=== PATIENT | male | born 1955 | race Caucasian/White ===

== ENCOUNTER 2017-07-27 11:56 | Outpatient (CLI) | payer OTHER ==
[2015-07-06 11:44] VITALS: O2SAT 97
== END 2017-07-27 11:57 | disposition home or self-care (01) | DRG 554 ==
LOC: CONVCARE 11:56
PROVIDERS: ATTEND Orthopaedic Surgery
DX: M87.9 Osteonecrosis, unspecified (principal); M16.11 Unilateral primary osteoarthritis, right hip; Z47.1 Aftercare following joint replacement surgery; Z96.652 Presence of left artificial knee joint
CPT/HCPCS: 73501; 73502

== ENCOUNTER 2017-08-10 05:28 | Inpatient (IN) | payer OTHER ==
[2017-08-10] MEDS ORDERED: LACTATED RINGERS 1,000 ML IV ONE (06:00)
[2017-08-10] MEDS: SCOPOLAMINE 1.5MG PATCH TD SCH (06:02)
[2017-08-10] MEDS ORDERED: LACTATED RINGERS 1,000 ML IV SCH (07:00)
[2017-08-10] MEDS ORDERED: PROPOFOL 500 MG/50 ML EMU IV ONE ×2 (07:28→09:25)
[2017-08-10] MEDS ORDERED: METOCLOPRAMIDE HYDROCHLORIDE 5 MG/ML SOL ONE (07:29)
[2017-08-10] MEDS ORDERED: DEXAMETHASONE 20 MG/5 ML (4 MG/ML SOL) ONE (07:29)
[2017-08-10] MEDS ORDERED: CEFAZOLIN SODIUM 1 GM PDS ONE ×3 (07:29→23:50)
[2017-08-10] MEDS ORDERED: BUPIVACAINE LIPOSOME 20 ML SUS ONE (07:30)
[2017-08-10] MEDS ORDERED: TRANEXAMIC ACID 100 MG/ML SOL ONE (07:30)
[2017-08-10] MEDS ORDERED: HYDROMORPHONE 1 MG/ML SYRINGE ONE (07:32)
[2017-08-10] MEDS ORDERED: MIDAZOLAM 2 MG/2 ML SOL ONE ×2 (07:51→08:53)
[2017-08-10] MEDS ORDERED: SODIUM CHLORIDE 20 ML 40 ML ONE (07:55)
[2017-08-10] MEDS ORDERED: EPHEDRINE SULFATE 50 MG/ML SOL ONE (08:53)
[2017-08-10] MEDS ORDERED: PHENYLEPHRINE HYDROCHLORIDE 10 MG/ML SOL ONE (08:53)
[2017-08-10] MEDS ORDERED: ONDANSETRON HCL 4 MG/2 ML SOL ONE (09:45)
[2017-08-10] MEDS ORDERED: FLEET ENEMA PR PRN (09:47)
[2017-08-10] MEDS ORDERED: DIPHENHYDRAMINE 25 MG CAP PO PRN (09:47)
[2017-08-10] MEDS ORDERED: ONDANSETRON 4 MG ODT BU PRN (09:47)
[2017-08-10] MEDS ORDERED: MAGNESIUM HYDROXIDE 30 ML SUS PO PRN (09:47)
[2017-08-10] MEDS ORDERED: ONDANSETRON HCL 4 MG/2 ML SOL IV PRN (09:47)
[2017-08-10] MEDS ORDERED: DIAZEPAM 5 MG TAB PO PRN (09:47)
[2017-08-10] MEDS ORDERED: TEMAZEPAM 15MG 15 MG CAP PO PRN (09:47)
[2017-08-10] MEDS ORDERED: BISACODYL 10 MG SUP PR PRN (09:47)
[2017-08-10] MEDS ORDERED: ALUMINUM/MAGNESIUM 30 ML SUS PO PRN (09:47)
[2017-08-10] MEDS ORDERED: SODIUM CHLORIDE 0.9% 500 ML 500 ML IV PRN (09:47)
[2017-08-10] MEDS: DEXTROSE/SALINE 0.45% 1,000 ML IV SCH (12:21)
[2017-08-10] MEDS: SODIUM CHLORIDE 0.9% FLUSH 10 ML SOL IV SCH ×2 (13:12→17:01)
[2017-08-10] MEDS: ACETAMINOPHEN 500 MG 500 MG TAB PO SCH ×3 (13:16→21:01)
[2017-08-10] MEDS ORDERED: CEFAZOLIN SODIUM 1 GM PDS 1 GM in SODIUM CHLORIDE 0.9% 50 ML 50 ML IV SCH ×2 (15:30→16:15)
[2017-08-10] MEDS ORDERED: CEFAZOLIN (PREMIX) 1 GM 1 GM/50 ML SOL IV SCH ×2 (15:51→16:15)
[2017-08-10] MEDS ORDERED: SODIUM CHLORIDE 0.9% 50 ML 50 ML IV ONE ×2 (16:53→23:50)
[2017-08-10] MEDS: CEFAZOLIN SODIUM 1 GM PDS 1 GM in SODIUM CHLORIDE 0.9% 50 ML 50 ML IV SCH ×2 (16:57→23:57)
[2017-08-10] MEDS: OXYCODONE HYDROCHLORIDE 5 MG TAB PO PRN (18:24)
[2017-08-10] MEDS: SENNOSIDES A AND B 8.6 MG TAB PO SCH (21:01)
[2017-08-11] MEDS: DEXTROSE/SALINE 0.45% 1,000 ML IV SCH ×2 (00:10→06:56)
[2017-08-11] MEDS: OXYCODONE HYDROCHLORIDE 5 MG TAB PO PRN ×6 (00:42→20:54)
[2017-08-11] MEDS: SODIUM CHLORIDE 0.9% FLUSH 10 ML SOL IV SCH ×4 (00:44→18:54)
[2017-08-11 07:31] LABS: MEAN CORPUSCULAR HGB CONC 34.5 gm/dl (32.0-36.0)
[2017-08-11] MEDS: RIVAROXABAN 10 MG TAB PO SCH (09:06)
[2017-08-11] MEDS: ACETAMINOPHEN 500 MG 500 MG TAB PO SCH ×4 (09:06→20:25)
[2017-08-11] MEDS: SENNOSIDES A AND B 8.6 MG TAB PO SCH (20:26)
[2017-08-12] MEDS: SODIUM CHLORIDE 0.9% FLUSH 10 ML SOL IV SCH ×2 (05:05→13:01)
[2017-08-12 07:14] LABS: MEAN CORPUSCULAR HGB CONC 34.5 gm/dl (32.0-36.0)
[2017-08-12] MEDS: OXYCODONE HYDROCHLORIDE 5 MG TAB PO PRN ×2 (08:37→13:00)
[2017-08-12] MEDS: ACETAMINOPHEN 500 MG 500 MG TAB PO SCH ×4 (08:39→20:25)
[2017-08-12] MEDS: RIVAROXABAN 10 MG TAB PO SCH (08:39)
[2017-08-12] MEDS: SENNOSIDES A AND B 8.6 MG TAB PO SCH (20:26)
[2017-08-13] MEDS: SCOPOLAMINE 1.5MG PATCH TD SCH (06:33)
[2017-08-13 07:29] LABS: MEAN CORPUSCULAR HGB CONC 35.3 gm/dl (32.0-36.0)
[2017-08-13] MEDS: RIVAROXABAN 10 MG TAB PO SCH (08:36)
[2017-08-13] MEDS: ACETAMINOPHEN 500 MG 500 MG TAB PO SCH (08:36)
[2017-08-13] MEDS: OXYCODONE HYDROCHLORIDE 5 MG TAB PO PRN (09:07)
[2017-08-13 10:34] VITALS: BP 120/81; PULSE 84; TEMP 98.5; O2SAT 95
[2017-08-13 11:51] VITALS: RESP 16
[2017-08-13] MEDS ORDERED: INFLUENZA VIRUS VACCINE 0.5 ML SUS IM ONE (12:02)
== END 2017-08-13 14:15 | disposition home or self-care (01) | DRG 470 ==
LOC: UNDOADMIN 05:28 → ACUTE CARE 05:28 → UNDOADMIN 06:30 → ACUTE CARE 06:30
PROVIDERS: ADMIT Orthopaedic Surgery; ATTEND Orthopaedic Surgery
PROC: F01ZDFZ Gait and/or Balance Assessment using Assistive, Adaptive, Supportive or Protective Equipment (ICD-10-PCS; 2017-08-10)
PROC: F01ZBZZ Bed Mobility Assessment (ICD-10-PCS; 2017-08-10)
PROC: F01ZCZZ Transfer Assessment (ICD-10-PCS; 2017-08-10)
PROC: 0SR904A Replacement of Right Hip Joint with Ceramic on Polyethylene Synthetic Substitute, Uncemented, Open Approach (ICD-10-PCS; principal; 2017-08-10 08:00)
PROC: F02Z1ZZ Dressing Assessment (ICD-10-PCS; 2017-08-11)
PROC: F02Z0ZZ Bathing/Showering Assessment (ICD-10-PCS; 2017-08-11)
PROC: F02Z3ZZ Grooming/Personal Hygiene Assessment (ICD-10-PCS; 2017-08-11)
DX: M16.11 Unilateral primary osteoarthritis, right hip (principal); Z96.643 Presence of artificial hip joint, bilateral
CPT/HCPCS: 36415; 73501; 73502; 85027; 90686; 94150; 99070; J0690; J1100; J2250; J2405; J2765; A6232; A9270-GY; G0008; J1170; J2704; L1830; Q3014

== ENCOUNTER 2017-09-21 08:32 | Outpatient (CLI) | payer OTHER ==
[2017-08-13 10:34] VITALS: O2SAT 95
== END 2017-09-21 08:33 | disposition home or self-care (01) | DRG 561 ==
LOC: CONVCARE 08:32
PROVIDERS: ATTEND Orthopaedic Surgery
DX: Z47.1 Aftercare following joint replacement surgery (principal); Z96.643 Presence of artificial hip joint, bilateral
CPT/HCPCS: 73501